=== PATIENT | male | born 1945 | race African-American/Black ===

== ENCOUNTER 2016-09-15 09:29 | Outpatient (CLI) | payer MEDICARE ==
[2016-09-15 12:51] LABS: Hemoglobin A1c 5.7 % (4.0-6.0)
[2016-09-15 13:00] LABS: ALT (SGPT) 21 U/L (8-55); AST (SGOT) 30 U/L (5-34); Albumin 3.8 g/dL (3.4-4.8); Alkaline Phosphatase 76 U/L (40-150); Anion Gap 15 mmol/L (10-20); BUN (Urea Nitrogen) 17 mg/dL (8.4-25.7); Bilirubin, Direct 0.2 mg/dL (0.1-0.3); Bilirubin, Total 0.5 mg/dL (0.2-1.2); Calc. Creatinine Clearance 0 mL/min (70-130); Calcium 8.6 mg/dL (7.8-10.44); Carbon Dioxide 24 mmol/L (23-31); Cardiac Risk 3.4 (Less than 4.5); Chloride 105 mmol/L (98-107); Cholesterol 189 mg/dl (< 200 Desired); Estimated GFR-MDRD 87; Glucose 83 mg/dL (83-110); HDL Cholesterol 55 mg/dL (>60 Neg Risk); LDL Cholesterol, Calculated 121 mg/dL; Protein, Total 7.2 g/dL (5.8-8.1); Sodium 140 mmol/L (136-145); Triglycerides 63 mg/dL (Less than 150)
[2016-09-15 14:13] LABS: Hemoglobin 11.6 g/dL (14.0-18.0); Mean Corpuscular HGB CONC 30.1 g/dL (32.0-36.0); Mean Corpuscular Hemoglobin 23.4 pg (27.0-31.0); Mean Corpuscular Volume 77.9 fl (80.0-94.0); Platelet Count 234 thou/uL (130-400); RBC Distribution Width 13.7 % (11.5-14.5); Red Blood Cell (RBC) Count 4.93 mill/uL (4.70-6.10)
[2016-09-15 14:15] LABS: Anisocytosis SLIGHT = 6-15 cells (100X) (0-5/hpf); MDiff Complete? YES; Microcytosis SLIGHT = 6-15 cells (100X) (0-5/hpf); PLT Morphology Comment Appears Adequate
== END 2016-09-15 09:30 | disposition home or self-care (01) ==
LOC: NAVSJIPCSP 09:29
PROVIDERS: ATTEND Family Medicine
DX: I10 Essential (primary) hypertension (principal); M96.1 Postlaminectomy syndrome, not elsewhere classified; M48.06 Spinal stenosis, lumbar region; M51.16 Intervertebral disc disorders with radiculopathy, lumbar region; M47.816 Spondylosis without myelopathy or radiculopathy, lumbar region; Z79.899 Other long term (current) drug therapy
CPT/HCPCS: 36415; 80048; 80061; 80076; 83036; 84443; 85025

== ENCOUNTER 2022-06-25 13:04 | Emergency (ER) | payer MEDICARE, OTHER ==
[2022-06-25] MEDS ORDERED: Boostrix 0.5 ML (Tdap) VIAL (>/=7 yrs of age) ONE (13:29)
[2022-06-25] MEDS ORDERED: Lidocaine 1% (PF) 30 ML VIAL ONE (13:40)
[2022-06-25] MEDS ORDERED: Bacitracin 1 PK ONE (15:55)
== END 2022-06-25 16:10 | disposition home or self-care (01) ==
LOC: NAV ERS 13:04
DX: S61.021A Laceration with foreign body of right thumb without damage to nail, initial encounter (principal); L02.511 Cutaneous abscess of right hand; I10 Essential (primary) hypertension; W54.8XXA Other contact with dog, initial encounter
CPT/HCPCS: 12041; 90471; 90715; J2001